=== PATIENT | male | born 1980 ===

== ENCOUNTER → 2023-09-13 | Outpatient (REF) | payer OTHER ==
[2023-09-13 18:21] LABS: ALBUMIN 4.4 G/DL (3.2-5.2); BILIRUBIN,DIRECT 0.2 MG/DL (<0.4); BILIRUBIN,TOTAL 0.6 MG/DL (0.3-1.2); TOTAL PROTEIN 7.5 G/DL (5.7-8.2)
== END ==
LOC: M WUC 17:10
PROVIDERS: ATTEND Physician Assistant
DX: B37.2 Candidiasis of skin and nail (principal)